=== PATIENT | female | born 1965 | race Caucasian/White ===

== ENCOUNTER → 2017-07-15 | Day surgery (SDC) | payer OTHER ==
[~2017-07-15] VITALS: Ht 160 cm; Wt 68.9 kg
[~2017-07-15] MED LIST: *morphine SULFATE 8 MG/ML PERIprocedure ONLY ONE; BUPR100T4 PO; BUPR150T66 PO; CHLORHEXIDINE GLUCONATE 2 % 1 PACK (2 CLOTHS) TOPICAL PRN; CLON.5 PO; DO NOT ADM ANY ANTICOAGULANT DRUGS PRN; FLUO20TA20 PO; FLUT50SP EACH NARE; IBUPROFEN 400 MG TAB PO PRN; LACTATED RINGER'S 1000 ML IV PRN; LORA1TAB PO; LORA1TAB12 PO; LORTS PO; LOSA100T PO; MELO15TA20 PO; METOPROLOL TARTRATE 25 MG TAB PO PRN; METR-1 PO; MIDAZOLAM HCL 2 MG/2 ML VIAL ONE; MORPHINE SULFATE 4 MG/ML INJ IV PRN; OFLOXACIN 0.3% OPTH SOLN 5 ML BTL ONE; OMEP20TA93 PO; ONDANSETRON HCL 4 MG/2 ML VIAL IV ONE; ONDANSETRON HCL 4 MG/2 ML VIAL IV PUSH PRN; POVIDONE IODINE 5% (ANTISEPSIS KIT) 4 APPLICATIONS EACH NARE PRN; PRIL40CA PO; PROPOFOL 200 MG/20 ML AMP IV ONE; RIZA10TA2 PO; SODIUM CHLORID 0.9% 500 ML IV PRN; VANC1CAP6 PO; ZOLP10TA3 PO
[2017-07-15 07:34] LABS: AUTOMATED NEUTROPHIL # 5.7 TH/MM3 (1.8-7.7); BASOPHIL # 0.1 TH/MM3 (0-0.2); BASOPHIL % 0.8 % (0.0-2.0); EOSINOPHIL # 0.2 TH/MM3 (0-0.4); EOSINOPHIL % 1.8 % (0.0-4.0); HEMATOCRIT 37.7 % (35.0-46.0); HEMOGLOBIN 12.8 GM/DL (11.6-15.3); LYMPH % 31.5 % (9.0-44.0); LYMPHOCYTE # 3.1 TH/MM3 (1.0-4.8); MEAN CELL VOLUME 90.7 FL (80.0-100.0); MEAN CORPUSCULAR HEMOGLOBIN 30.7 PG (27.0-34.0); MEAN CORPUSCULAR HGB CONC 33.9 % (32.0-36.0); MEAN PLATELET VOLUME 8.5 FL (7.0-11.0); MONO % 8.5 % (0.0-8.0); MONOCYTE # 0.8 TH/MM3 (0-0.9); NEUT % 57.4 % (16.0-70.0); PLATELET COUNT 250 TH/MM3 (150-450); RED BLOOD COUNT 4.16 MIL/MM3 (4.00-5.30); RED CELL DISTRIBUTION WIDTH 13.2 % (11.6-17.2); WHITE BLOOD COUNT 9.9 TH/MM3 (4.0-11.0)
--- NOTE | 2017-07-15 08:52 | MP ---
cc: Walter Sauer MD DATE OF OPERATION: 07/15/2017 DATE OF PROCEDURE: 07/15/2017 INDICATION FOR PROCEDURE: This is a 51-year-old female left serous otitis, chronic otitis, not responding to medical therapy. Plan is for left myringotomy and tube under general anesthesia. PREOPERATIVE DIAGNOSIS: Chronic otitis media. POSTOPERATIVE DIAGNOSIS: Chronic otitis media. PROCEDURE PERFORMED: Left myringotomy and tube under general anesthesia. SUMMARY OF PROCEDURE: The patient was brought to the operating room, placed in supine position, successfully placed under general anesthesia, prepped and draped in the usual fashion for this procedure. The left ear was examined with the microscope and was cleared of debris. Myringotomy incision was made anterior inferiorly. The ear was suctioned. A pressure equalization tube was placed without complication. Floxin drops were applied. The patient tolerated the procedure well, was awakened and taken to recovery in stable condition. MD DORI Cisse/KD , 08:31 AM , 08:51 AM
[2017-07-15 10:30] VITALS: BP 147/80; PULSE 88; RESP 20; TEMP 98.3; O2SAT 98
== END | disposition home or self-care (01) ==
LOC: HSDC 06:09
PROVIDERS: ATTEND Specialist
DX: H65.22 Chronic serous otitis media, left ear (principal); H69.82 Other specified disorders of Eustachian tube, left ear; H92.03 Otalgia, bilateral; Z01.818 Encounter for other preprocedural examination
CPT/HCPCS: 00126; 69436; 85025; J2250; J2270; J2405

== ENCOUNTER 2017-07-28 13:08 | Emergency (ER) | payer OTHER ==
[~2017-07-28 13:08] MED LIST changes: -*morphine SULFATE 8 MG/ML PERIprocedure ONLY ONE; -BUPR150T66 PO; -CHLORHEXIDINE GLUCONATE 2 % 1 PACK (2 CLOTHS) TOPICAL PRN; -CLON.5 PO; -DO NOT ADM ANY ANTICOAGULANT DRUGS PRN; -FLUO20TA20 PO; -IBUPROFEN 400 MG TAB PO PRN; -LACTATED RINGER'S 1000 ML IV PRN; -LORA1TAB PO; -LORTS PO; -METOPROLOL TARTRATE 25 MG TAB PO PRN; -METR-1 PO; -MIDAZOLAM HCL 2 MG/2 ML VIAL ONE; -MORPHINE SULFATE 4 MG/ML INJ IV PRN; -OFLOXACIN 0.3% OPTH SOLN 5 ML BTL ONE; -ONDANSETRON HCL 4 MG/2 ML VIAL IV ONE; -ONDANSETRON HCL 4 MG/2 ML VIAL IV PUSH PRN; -POVIDONE IODINE 5% (ANTISEPSIS KIT) 4 APPLICATIONS EACH NARE PRN; -PRIL40CA PO; -PROPOFOL 200 MG/20 ML AMP IV ONE; -SODIUM CHLORID 0.9% 500 ML IV PRN; -VANC1CAP6 PO
[2017-07-28 13:16] VITALS: BP 168/107; PULSE 79; RESP 20; TEMP 98.8; O2SAT 98
[2017-07-28 14:07] VITALS: BP 177/100; PULSE 83; RESP 20; O2SAT 100
[2017-07-28] MEDS ORDERED: DEXT37.52 PO (14:08)
[2017-07-28] MEDS ORDERED: cloNIDine HCL 0.1 MG TAB PO ONE (15:00)
--- NOTE | 2017-07-28 15:10 | PD ---
HPI Chief Complaint: Hypertension Time Seen by Provider: 14:41 Travel History International Travel<30 days: No Contact w/Intl Traveler<30days: No Traveled to known affect area: No History of Present Illness HPI This 75-year-old female is complaining of high blood pressure. She has a history of hypertension for about [address] Walker. He was recently changed from 50 mg of losartan daily to 100. She had some ear surgery last week for chronic otitis. She does get occasional vertigo. She says she has been feeling lightheaded and her blood pressure has been elevated. She does say she has been under a lot of stress. 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 He has not had chest pain PFSH Past Medical History Anxiety: Yes Depression: Yes Cancer: No Cardiovascular Problems: Yes High Cholesterol: Yes Diabetes: Yes Patient Takes Glucophage: No Endocrine: Yes Gastrointestinal Disorders: Yes GERD: Yes Genitourinary: No Hiatal Hernia: Yes Hypertension: Yes Immune Disorder: No Musculoskeletal: Yes Neurologic: No Psychiatric: Yes Reproductive: No Respiratory: Yes Sleep Apnea: Yes (USES CPAP) ?: Not : 3 Para: 3 Tubal Ligation: Yes Past Surgical History Abdominal Surgery: Yes (GASTRIC SLEEVE 03/29/2012) Gynecologic Surgery: Yes (TUBAL LIG. ENDOMETRIAL ABLATION) Oral Surgery: Yes (t&a) Pacemaker: No Other Surgery: Yes Social History Alcohol Use: Yes (1 DRINK TWICE A MONTH) Tobacco Use: No Substance Use: No Allergies-Medications (Allergen,Severity, Reaction): Coded Allergies: ciprofloxacin (Unverified Allergy, Severe, GASTRIC PAIN/ DIARRHEA, 07/28/17 ) Reported Meds & Prescriptions Reported Meds & Active Scripts Active Amlodipine (Amlodipine Besylate) 2.5 Mg Tab 2.5 Mg PO DAILY Reported Mydayis ER 24 HR (Amphetamine/Dextroamphetamine) 37.5 Mg Cptp.24hr 37.5 Mg PO DAILY Lorazepam 1 Mg Tab 1 Mg PO BID Bupropion HCl 100 Mg Tab 150 Mg PO DAILY Rizatriptan (Rizatriptan Benzoate) 10 Mg Tab 10 Mg PO PRN PRN Zolpidem (Zolpidem Tartrate) 10 Mg Tab 10 Mg PO HS PRN Meloxicam 15 Mg Tab 15 Mg PO DAILY Losartan (Losartan Potassium) 100 Mg Tab 100 Mg PO DAILY Omeprazole 20 Mg Tab 20 Mg PO DAILY Fluticasone Nasal [place] 50 Mcg/Act Naspr 50 Mcg EACH NARE BID 50 mcg/spray Review of Systems General / Constitutional: No: Fever, Chills Eyes: No: Diploplia, Blurred Vision HENT: Positive: Headaches, Lightheadedness Cardiovascular: No: Chest Pain or Discomfort, Palpitations Respiratory: No: Cough, Shortness of Breath Gastrointestinal: No: Nausea, Vomiting Genitourinary: No: Urgency, Frequency Musculoskeletal: No: Myalgias, Arthralgias Skin: No Rash Neurologic: Positive: Weakness, Dizziness, No: Syncope Endocrine: No: Heat Intolerance Hematologic/Lymphatic: No: Easy Bruising Physical Exam Narrative GENERAL: Well-developed female. Blood pressure is 170/100 SKIN: Focused skin assessment warm/dry. HEAD: Atraumatic. Normocephalic. EYES: Pupils equal and round. No scleral icterus. No injection or drainage. ENT: No nasal bleeding or discharge. Mucous membranes pink and moist. NECK: Trachea midline. No JVD. CARDIOVASCULAR: Regular rate and rhythm. No murmur appreciated. RESPIRATORY: No accessory muscle use. Clear to auscultation. Breath sounds equal bilaterally. GASTROINTESTINAL: Abdomen soft, non-tender, nondistended. Hepatic and splenic margins not palpable. MUSCULOSKELETAL: No obvious deformities. No clubbing. No cyanosis. No edema. NEUROLOGICAL: Awake and alert. No obvious cranial nerve deficits. Motor grossly within normal limits. Normal speech. PSYCHIATRIC: Appropriate mood and affect; insight and judgment normal. Data Data Last Documented VS Vital Signs Date Time Temp Pulse Resp B/P (MAP) Pulse Ox O2 Delivery O2 Flow Rate FiO2 07/28/17 17:01 07/28/17 16:53 94 16 100 Room Air 07/28/17 13:16 98.8 Orders Orders Electrocardiogram (07/28/17 14:50) Complete Blood Count With Diff (07/28/17 14:50) Basic Metabolic Panel (Bmp) (07/28/17 14:50) Clonidine (Catapres) (07/28/17 15:00) Urinalysis - C+S If Indicated (07/28/17 14:52) Hydralazine Inj (Apresoline Inj) (07/28/17 16:15) Ed Discharge Order (07/28/17 16:49) Labs Laboratory Tests Test 07/28/17 15:10 07/28/17 15:15 Urine Collection Type CLEAN CATCH Urine Color YELLOW Urine Turbidity CLEAR Urine pH 5.0 Urine Specific [place] 1.025 Urine Protein NEG mg/dL Urine Glucose (UA) NEG mg/dL Urine Ketones TRACE mg/dL Urine Occult Blood TRACE Urine Nitrite NEG Urine Bilirubin NEG Urine Urobilinogen 0.2 MG/DL Urine Leukocyte Esterase NEG Urine RBC 0-3 /hpf Urine WBC 0-2 /hpf Urine Squamous Epithelial Cells 0-5 /hpf Urine Bacteria OCC /hpf Microscopic Urinalysis Comment CULT NOT INDICATED Urine Collection Time 15:10 White Blood Count 11.4 TH/MM3 Red Blood Count 4.47 MIL/MM3 Hemoglobin 13.5 GM/DL Hematocrit 40.3 % Mean Corpuscular Volume 90.2 FL Mean Corpuscular Hemoglobin 30.2 PG Mean Corpuscular Hemoglobin Concent 33.5 % Red Cell Distribution Width 13.0 % Platelet Count 301 TH/MM3 Mean Platelet Volume 8.4 FL Neutrophils (%) (Auto) 59.3 % Lymphocytes (%) (Auto) 29.6 % Monocytes (%) (Auto) 7.6 % Eosinophils (%) (Auto) 2.2 % Basophils (%) (Auto) 1.3 % Neutrophils # (Auto) 6.7 TH/MM3 Lymphocytes # (Auto) 3.4 TH/MM3 Monocytes # (Auto) 0.9 TH/MM3 Eosinophils # (Auto) 0.3 TH/MM3 Basophils # (Auto) 0.1 TH/MM3 CBC Comment DIFF FINAL Differential Comment Blood Urea Nitrogen 19 MG/DL Creatinine 0.70 MG/DL Random Glucose 80 MG/DL Calcium Level 9.1 MG/DL Sodium Level 138 MEQ/L Potassium Level 4.0 MEQ/L Chloride Level 106 MEQ/L Carbon Dioxide Level 27.1 MEQ/L Anion Gap 5 MEQ/L Estimat Glomerular Filtration Rate 89 ML/MIN [facility] Medical Decision Making Medical Screen Exam Complete: Yes Emergency Medical Condition: Yes Medical Record Reviewed: Yes Differential Diagnosis Differential includes asymptomatic hypertension, electrolyte imbalance Narrative Course Lab work is being checked and she has been given a dose of clonidine. Disposition is pending and will be determined by oncoming physician Diagnosis Primary Impression: Hypertension Scripts Amlodipine (Amlodipine) 2.5 Mg Tab 2.5 MG PO DAILY for Blood Pressure Management, #15 TAB 0 Refills Prov: Hernandez,Francine DO 07/28/17 Theo Perez MD Jul 28, 2017 15:10
[2017-07-28 15:21] LABS: BILIRUBIN, URINE NEG (NEG); BLOOD, URINE TRACE (NEG); GLUCOSE,URINE NEG (NEG); KETONE, URINE TRACE mg/dL (NEG); NITRITE,URINE NEG (NEG); URINE COLOR YELLOW (YELLW/STRAW); URINE LEUKOCYTE ESTERASE NEG (NEG)
[2017-07-28 15:25] VITALS: BP 165/103; PULSE 69; RESP 16; O2SAT 97
[2017-07-28 15:25] LABS: AUTOMATED NEUTROPHIL # 6.7 TH/MM3 (1.8-7.7); BASOPHIL # 0.1 TH/MM3 (0-0.2); BASOPHIL % 1.3 % (0.0-2.0); EOSINOPHIL # 0.3 TH/MM3 (0-0.4); EOSINOPHIL % 2.2 % (0.0-4.0); HEMATOCRIT 40.3 % (35.0-46.0); HEMOGLOBIN 13.5 GM/DL (11.6-15.3); LYMPH % 29.6 % (9.0-44.0); LYMPHOCYTE # 3.4 TH/MM3 (1.0-4.8); MEAN CELL VOLUME 90.2 FL (80.0-100.0); MEAN CORPUSCULAR HEMOGLOBIN 30.2 PG (27.0-34.0); MEAN CORPUSCULAR HGB CONC 33.5 % (32.0-36.0); MEAN PLATELET VOLUME 8.4 FL (7.0-11.0); MONO % 7.6 % (0.0-8.0); MONOCYTE # 0.9 TH/MM3 (0-0.9); NEUT % 59.3 % (16.0-70.0); PLATELET COUNT 301 TH/MM3 (150-450); RED BLOOD COUNT 4.47 MIL/MM3 (4.00-5.30); WHITE BLOOD COUNT 11.4 TH/MM3 (4.0-11.0)
[2017-07-28 15:25] LABS: BACTERIA, URINE OCC /hpf; RBC, URINE 0-3 /hpf (0-3); SQUAMOUS EPITHELIAL CELL URINE 0-5 /hpf (0-5); WBC, URINE 0-2 /hpf (0-5)
[2017-07-28 15:36] LABS: BICARBONATE 27.1 MEQ/L (21.0-32.0); CALCIUM 9.1 MG/DL (8.5-10.1)
--- NOTE | 2017-07-28 15:39 | PD ---
Physical Exam Narrative Received sign out from previous team to follow up labs and reevaluate blood pressure after medication. 51yo F with PMH of HTN on losartan here with complaint of elevated blood pressure. Labs reviewed, no leukocytosis. H/H normal. Creatinine normal at 0.70. UA showed no leukocyte. WBC 0-2. Culture not indicated. BP was 168/ 107. Pt given clonidine 0.1mg PO. Pt given hydralazine 10mg and BP is now 134/ 88. Pt said she is feeling much better and now and wants to go home. Denies any headache, visual changes, chest pain, sob, n/v, abdominal pain, focal weakness or numbness. Pt has been on losartan 100mg for 4 months and blood pressure is still high, requesting a second blood pressure medication. Will prescribe one and have pt follow up with her PMD. Return precautions given. Data Data Last Documented VS Vital Signs Date Time Temp Pulse Resp B/P (MAP) Pulse Ox O2 Delivery O2 Flow Rate FiO2 07/28/17 16:39 96 16 134/88 (103) 98 Room Air 07/28/17 13:16 98.8 Orders Orders Electrocardiogram (07/28/17 14:50) Complete Blood Count With Diff (07/28/17 14:50) Basic Metabolic Panel (Bmp) (07/28/17 14:50) Clonidine (Catapres) (07/28/17 15:00) Urinalysis - C+S If Indicated (07/28/17 14:52) Hydralazine Inj (Apresoline Inj) (07/28/17 16:15) Labs Laboratory Tests Test 07/28/17 15:10 07/28/17 15:15 Urine Collection Type CLEAN CATCH Urine Color YELLOW Urine Turbidity CLEAR Urine pH 5.0 Urine Specific [place] 1.025 Urine Protein NEG mg/dL Urine Glucose (UA) NEG mg/dL Urine Ketones TRACE mg/dL Urine Occult Blood TRACE Urine Nitrite NEG Urine Bilirubin NEG Urine Urobilinogen 0.2 MG/DL Urine Leukocyte Esterase NEG Urine RBC 0-3 /hpf Urine WBC 0-2 /hpf Urine Squamous Epithelial Cells 0-5 /hpf Urine Bacteria OCC /hpf Microscopic Urinalysis Comment CULT NOT INDICATED Urine Collection Time 15:10 White Blood Count 11.4 TH/MM3 Red Blood Count 4.47 MIL/MM3 Hemoglobin 13.5 GM/DL Hematocrit 40.3 % Mean Corpuscular Volume 90.2 FL Mean Corpuscular Hemoglobin 30.2 PG Mean Corpuscular Hemoglobin Concent 33.5 % Red Cell Distribution Width 13.0 % Platelet Count 301 TH/MM3 Mean Platelet Volume 8.4 FL Neutrophils (%) (Auto) 59.3 % Lymphocytes (%) (Auto) 29.6 % Monocytes (%) (Auto) 7.6 % Eosinophils (%) (Auto) 2.2 % Basophils (%) (Auto) 1.3 % Neutrophils # (Auto) 6.7 TH/MM3 Lymphocytes # (Auto) 3.4 TH/MM3 Monocytes # (Auto) 0.9 TH/MM3 Eosinophils # (Auto) 0.3 TH/MM3 Basophils # (Auto) 0.1 TH/MM3 CBC Comment DIFF FINAL Differential Comment Blood Urea Nitrogen 19 MG/DL Creatinine 0.70 MG/DL Random Glucose 80 MG/DL Calcium Level 9.1 MG/DL Sodium Level 138 MEQ/L Potassium Level 4.0 MEQ/L Chloride Level 106 MEQ/L Carbon Dioxide Level 27.1 MEQ/L Anion Gap 5 MEQ/L Estimat Glomerular Filtration Rate 89 ML/MIN MDM Supervised Visit with NIKKI: No Diagnosis Primary Impression: Elevated blood pressure reading Patient Instructions: General Instructions Departure Forms: Tests/Procedures Additional Instruction: Please follow up with your primary care physician in 2-3 days. Return to the ED if symptoms worsen. Med/Other Pt SpecificInfo: Prescription(s) given Scripts Amlodipine (Amlodipine) 2.5 Mg Tab 2.5 MG PO DAILY for Blood Pressure Management, #15 TAB 0 Refills Prov: Francine Hernandez 07/28/17 Disposition: 01 DISCHARGE HOME Condition: Stable HernandezAileen hernándezvince BATISTA Jul 28, 2017 15:39
[2017-07-28 15:40] LABS: CREATININE 0.7 MG/DL (0.50-1.00)
[2017-07-28 16:14] VITALS: BP 170/105
[2017-07-28] MEDS ORDERED: hydrALAZINE HCL 20 MG/ML VIAL IV PUSH ONE (16:15)
[2017-07-28 16:39] VITALS: BP 134/88; PULSE 96; RESP 16; O2SAT 98
[2017-07-28] MEDS ORDERED: AMLO2.5T PO (16:48)
[2017-07-28 16:53] VITALS: BP 140/92; PULSE 94; RESP 16; O2SAT 100
--- NOTE | 2017-07-29 22:58 | EKG ---
Date Performed: 07/28/2017 Time Performed: 15:02:43 PTAGE: 51 years EKG: Sinus rhythm WITH SINUS ARRHYTHMIA POSSIBLE LEFT ATRIAL ENLARGEMENT BORDERLINE ECG PREVIOUS TRACING : 07/19/2007 14.15 Since the previous tracing, no significant change noted DOCTOR: Jenni Mendez Interpretating Date/Time 07/29/2017 22:57:49
== END 2017-07-28 17:02 | disposition home or self-care (01) ==
LOC: PHED 13:08
DX: I10 Essential (primary) hypertension (principal); F41.9 Anxiety disorder, unspecified; F32.9 Major depressive disorder, single episode, unspecified; E78.00 Pure hypercholesterolemia, unspecified; E11.9 Type 2 diabetes mellitus without complications; K21.9 Gastro-esophageal reflux disease without esophagitis; R94.31 Abnormal electrocardiogram [ECG] [EKG]
CPT/HCPCS: 80048; 81001; 85025; 93005; 96374; 99284; J0360